=== PATIENT | female | born 1975 | race Caucasian/White ===

== ENCOUNTER 2016-09-19 09:47 | Emergency (ER) | payer OTHER ==
[2016-09-19 10:02] VITALS: TEMP 98.3; BMI 30.1
[2016-09-19] MEDS ORDERED: SODIUM CHLORIDE 0.9% 1000 ML INFUS.BAG IV ONE (10:18)
[2016-09-19] MEDS ORDERED: MAG HYDROX/AL HYDROX/SIMETH 355 ML ORAL.SUSP PO ONE (10:18)
[2016-09-19] MEDS ORDERED: FAMOTIDINE 20 MG/50 ML IVPB 50 ML IVPB ONE ×2 (10:18→10:22)
--- NOTE | 2016-09-19 10:19 | PDOC ---
History of Present Illness - General History Source: Patient, Family Exam Limitations: No Limitations - History of Present Illness Initial Comments: 09/19/16 10:20 The patient is a 40 year old female, accompanied by daughter, with a significant past medical history of diabetes and hypertension, who presents to the emergency department complaining of diarrhea for 3 days. The patient reports she has been unable to tolerate any solids due to diarrhea shortly after. She reports associated epigastric pain, but denies any nausea, vomiting, constipation, melena, or hematochezia. Patient recently had contact with her daughter, who had episodes of nausea and vomiting several days ago. The patient denies any recent travel or antibiotics. She denies any fever, chills, cough, headache, or dizziness. She denies any dysuria, hematuria, frequency, or urgency. Allergies: None reported. Past Surgical History: None reported. Social History: Non-smoker. Denies alcohol or drug use. <Gucci Roa - Last Filed: 09/19/16 10:20> <Ebony Poole - Last Filed: 09/19/16 12:24> - General Chief Complaint: Diarrhea Stated Complaint: DIARRHEA Past History <Gucci Roa - Last Filed: 09/19/16 10:20> - Past Medical History Diabetes: Yes (DIET CONTROLLED) - Psycho/Social/Smoking Cessation Hx Anxiety: No Suicidal Ideation: No Smoking Status: No Smoking History: Never smoked Have you smoked in the past 12 months: No Number of Cigarettes Smoked Daily: 0 Information on smoking cessation initiated: No Hx Alcohol Use: No Drug/Substance Use Hx: No <Ebony Poole - Last Filed: 09/19/16 12:24> - Past Medical History Allergies/Adverse Reactions: Allergies Allergy/AdvReac Type Severity Reaction Status Date / Time No Known Allergies Allergy Verified 12/22/11 16:07 Home Medications: Ambulatory Orders Metformin HCl [Glucophage] 1,000 mg PO BID 12/20/11 Glipizide 10 mg PO DAILY 09/19/16 Lisinopril [Zestril] 2.5 mg PO DAILY 09/19/16 Review of Systems - Review of Systems Able to Perform ROS?: Yes Comments:: 09/19/16 10:20 GENERAL/CONSTITUTIONAL: No fever or chills. No weakness. HEAD, EYES, EARS, NOSE AND THROAT: No change in vision. No ear pain or discharge. No sore throat. CARDIOVASCULAR: No chest pain or shortness of breath. RESPIRATORY: No cough, wheezing, or hemoptysis. GASTROINTESTINAL: Yes: +diarrhea, +epigastric pain. No nausea, vomiting, constipation, melena, or hematochezia. GENITOURINARY: No dysuria, frequency, or change in urination. MUSCULOSKELETAL: No joint or muscle swelling or pain. No neck or back pain. SKIN: No rash NEUROLOGIC: No headache, vertigo, loss of consciousness, or change in strength/ sensation. ENDOCRINE: Yes: +decreased appetite. No increased thirst. No abnormal weight change. HEMATOLOGIC/LYMPHATIC: No anemia, easy bleeding, or history of blood clots. ALLERGIC/IMMUNOLOGIC: No hives or skin allergy. <Gucci Roa - Last Filed: 09/19/16 10:20> *Physical Exam - Vital Signs Last Vital Signs Temp Pulse Resp BP Pulse Ox 98.3 F 108 H 20 114/73 100 09/19/16 09:54 09/19/16 09:54 09/19/16 09:54 09/19/16 09:54 09/19/16 09:54 - Physical Exam Comments: 09/19/16 10:21 GENERAL: Awake, alert, and fully oriented, in no acute distress HEAD: No signs of trauma EYES: PERRLA, EOMI, sclera anicteric, conjunctiva clear ENT: Auricles normal inspection, hearing grossly normal, nares patent. Moist mucosa NECK: Normal ROM, supple, no lymphadenopathy, JVD, or masses LUNGS: Breath sounds equal, clear to auscultation bilaterally. No wheezes, and no crackles HEART: Regular rate and rhythm, normal S1 and S2, no murmurs, rubs or gallops ABDOMEN: Mild tenderness epigastrically. Soft, normoactive bowel sounds. No guarding, no rebound. No masses EXTREMITIES: Normal range of motion, no edema. No clubbing or cyanosis. No cords, erythema, or tenderness. DP/PT pulses 2+ and symmetric. NEUROLOGICAL: Moves all extremities. Normal speech, normal gait SKIN: Warm, Dry, normal turgor, no rashes or lesions noted. <Gucci Roa - Last Filed: 09/19/16 10:20> - Vital Signs Last Vital Signs Temp Pulse Resp BP Pulse Ox 98.3 F 108 H 20 114/73 100 09/19/16 09:54 09/19/16 09:54 09/19/16 09:54 09/19/16 09:54 09/19/16 09:54 <Ebony Poole - Last Filed: 09/19/16 12:24> ED Treatment Course - LABORATORY CBC & Chemistry Diagram: 09/19/16 10:19 09/19/16 10:19 <Ebony Poole - Last Filed: 09/19/16 12:24> Medical Decision Making - Medical Decision Making 09/19/16 10:13 40 yo F with h/o DM HTN here with c/o diarrhea x 3 days. no nausea or vomiting. no f/c did have sick contact of daughter with nasuea and vomiting few days ago. no lighteaded. no recent travel or antiobiotics. c/o epigastric burning pain. on exam awake alert, lungs clear heart regular, abd soft mild epigastric ttp. no rebound or guarding. skin warm and dry. ext wwp no edema. differentiasl: viral GE. dehydration, pancreatitis, plan cbc lytes lipase iv hydration reassess. 09/19/16 12:23 labs mild dehydration. hyperglycemia. pt hyrdrated. tolerating PO. will dc home with follow up with [facility]. instructions for GE <Ebony Poole - Last Filed: 09/19/16 12:24> *DC/Admit/Observation/Transfer - Attestations Scribe Attestion: 09/19/16 10:22 Documentation prepared by Gucci Roa, acting as medical chemist for Ebony Poole MD. <Gucci Roa - Last Filed: 09/19/16 10:20> - Discharge Dispostion Admit: No <Ebony Poole - Last Filed: 09/19/16 12:24> Diagnosis at time of Disposition: Gastroenteritis - Discharge Dispostion Disposition: HOME Condition at time of disposition: Improved - Patient Instructions Printed Discharge Instructions: Viral Gastroenteritis Additional Instructions: be sure to drink plenty of fluids and eat. you should follow up with your regular doctor. return for dizziness, worsening pain or any concerns. Print Language: UPPER SORBIAN
[2016-09-19] MEDS ORDERED: MAG HYDROX/AL HYDROX/SIMETH 30 ML UNIT-DOSE CUP ONE (10:21)
[2016-09-19 10:38] LABS: BASOPHIL 0.5 % (0-2.0); EOSINOPHIL 0.1 % (0-4.5); MCH 20.8 pg (25.7-33.7); MCHC 30.9 g/dl (32.0-36.0); MEAN CELL VOLUME 67.5 fl (80-96); MEAN PLT VOLUME 8.3 fl (7.5-11.1); NEUTROPHILS 68.7 % (42.8-82.8); PLATELET COUNT 303 K/MM3 (134-434); RDW 18.9 % (11.6-15.6); WHITE BLOOD COUNT 6.1 K/mm3 (4.0-10.0)
[2016-09-19 11:09] LABS: ALBUMIN 3.9 g/dl (3.4-5.0); ALK PHOS 126 U/L (45-117); ANION GAP 11 (8-16); BILIRUBIN,TOTAL 0.3 mg/dL (0.2-1.0); CALCIUM 8.9 mg/dL (8.5-10.1); CO2 19 mmol/L (21-32); CREATININE 0.8 mg/dL (0.55-1.02); GLUCOSE,RANDOM 242 mg/dL (74-106); SGOT/AST 24 U/L (15-37); SGPT/ALT 43 U/L (12-78); TOT PROT 8.3 g/dl (6.4-8.2)
[2016-09-19 12:01] LABS: ANISOCYTOSIS 1+; HYPOCHROMIA 2+; MICROCYTOSIS 1+; PLATELET ESTIMATE ADEQUATE (NORMAL)
[2016-09-19 13:43] VITALS: BP 111/60; PULSE 82
== END 2016-09-19 14:30 | disposition home or self-care (01) ==
LOC: JER 09:47
PROC: 3E033GC Introduction of Other Therapeutic Substance into Peripheral Vein, Percutaneous Approach (ICD-10-PCS; principal; 2016-09-19)
PROC: 3E0337Z Introduction of Electrolytic and Water Balance Substance into Peripheral Vein, Percutaneous Approach (ICD-10-PCS; 2016-09-19)
DX: K52.9 Noninfective gastroenteritis and colitis, unspecified (principal); I10 Essential (primary) hypertension; E11.9 Type 2 diabetes mellitus without complications; Z79.84 Long term (current) use of oral hypoglycemic drugs
CPT/HCPCS: 36415; 80053; 83690; 85025; 96365; 99283-25